=== PATIENT | female | born 1990 | race Caucasian/White ===

== ENCOUNTER 2020-10-02 13:07 | Emergency (ER) | payer OTHER, BC ==
--- NOTE | 2020-10-02 13:29 | EDM.PDOC ---
ED HPI GENERAL MEDICAL PROBLEM - General Stated Complaint: laceration to back Time Seen by Provider: 10/02/20 13:15 Source of Information: Reports: Patient History Limitations: Reports: No Limitations - History of Present Illness INITIAL COMMENTS - FREE TEXT/NARRATIVE: Patient is camping. She was bent over and stood up and hit her back on the edge of the camper door. She has a wound on her back with slight gaping. tetanus is up to date in 2019. No other complaints. Otherwise healthy Onset: Today Location: Reports: Back ED ROS GENERAL - Review of Systems Review Of Systems: Comprehensive ROS is negative, except as noted in HPI. Skin: Reports: Wound ED EXAM, SKIN/RASH Exam: See Below Exam Limited By: No Limitations General Appearance: Alert, No Apparent Distress Eye Exam: Bilateral Eye: EOMI, Normal Inspection Head: Atraumatic Neck: Supple, Full Range of Motion Respiratory/Chest: No Respiratory Distress, Normal Breath Sounds Cardiovascular: Regular Rate, Rhythm, No Murmur Back Exam: Full Range of Motion, Other (1.5 irregular laceration at L2 area to the right. small amount of tissue loss, superficial wound. no other injuries) Extremities: Normal Inspection ED SKIN PROCEDURES - Laceration/Wound Repair Back Appearance: Subcutaneous, Irregular Distal NVT: Neuro & Vascular Intact Anesthetic Type: Local Local Anesthesia - Lidocaine (Xylocaine): 1% Plain Local Anesthetic Volume: 3cc Skin Prep: Providone-Iodine (Betadine) Exploration/Debridement/Repair: Wound Explored, In a Bloodless Field, Explored to Base Closed with: Sutures Lac/Wound length In cm: 1.5 Suture Size: 4-0 Suture Type: Nylon, Mattress Sterile Dressing Applied: Provider Tetanus Status Addressed: Yes (utd) Complications: No Course - Orders/Labs/Meds Meds: Medications Discontinued Medications Generic Name Dose Route Start Last Admin Trade Name Freq PRN Reason Stop Dose Admin Lidocaine HCl 5 ml 10/02/20 13:25 Lidocaine 1% 5 Ml Sdv INJECT 10/02/20 13:26 ONETIME ONE Departure - Departure Time of Disposition: 13:41 Disposition: Home, Self-Care 01 Condition: Good Clinical Impression: Laceration - Discharge Information *PRESCRIPTION DRUG MONITORING PROGRAM REVIEWED*: Not Applicable *COPY OF PRESCRIPTION DRUG MONITORING REPORT IN PATIENT TARAH: Not Applicable Instructions: Laceration Care, Adult Referrals: Cross,Jennifer B, [employer] [Primary Care Provider] - Additional Instructions: keep the area clean and bandaged. No swimming or hot tubs but can shower. Watch for signs of infection and present for medical evaluation if they occur. Suture is a mattress suture and needs to be removed in 2 weeks. Your tetanus immunization was in 2019 and is good for 10 years.
== END 2020-10-02 13:49 | disposition home or self-care (01) ==
LOC: VM.ED 13:07
DX: S31.010A Laceration without foreign body of lower back and pelvis without penetration into retroperitoneum, initial encounter (principal); W26.8XXA Contact with other sharp object(s), not elsewhere classified, initial encounter
CPT/HCPCS: 12001; 99282-25; 99283